=== PATIENT | female | born 1955 | race Caucasian/White ===

== ENCOUNTER 2016-11-23 11:24 | Outpatient (CLI) | payer BC ==
[~2016-11-23] VITALS: Ht 160 cm; Wt 75.9 kg
--- NOTE | ~2016-11-23 | HEMODYNAMI ---
PATIENT:JANIYA BERMAN MEDICAL RECORD: [id number] : 51 LOCATION:[facility] ADMISSION DATE: 11/23/16 Generatedon:11/23/201614:17 Patient name: JANIYA BERMAN Patient #: [id number] SSN: : 1955 Date of study: 11/23/2016 Page: Of Hemodynamic Procedure Report Patient Data Patient Demographics Procedure consent was obtained First Name: JANIYA Gender: Female Last Name: ANTONELLA : 1955 [facility] Initial: DONATO Age: 61 year(s) Patient #: [id number] Race: Additional ID: [id number] Contact details Address: [address] [place] [address] [address]ET State: [place] City: [facility] Zip code: [address] Past Medical History History of disease Date Diagnosis Comments CAD Allergies: No known allergies Admission Admission Data Admission Date: 11/23/2016 Admission Time: 11:24 Lab Results Lab Result Date: 11/23/2016 Lab Result Time: 0:00 Biochemistry Name Units Result Min Max BUN mg/dl 17 --(---*)-- 7 18 Creatinine mg/dl 1.1 --(--*-)-- 0.6 1.3 CBC Name Units Result Min Max Hemoglobin g/dl 13.5 --(*---)-- 13.5 17.5 Procedure Procedure Types Cath Procedure Diagnostic Procedure LHC LHC w/Coronaries w/Grafts Miscellaneous Procedures Moderate Sedation up to 30 minutes Procedure Description Procedure Date Procedure Date: 11/23/2016 Procedure Start Time: 13:59 Procedure End Time: 14:12 Procedure Staff Name Function Mateo Solomon MD Performing Physician Umu Alva RN Nurse Theo Camarena RT Monitor Hussein Soria RT Scrub Procedure Data Cath Procedure Fluoroscopy Diagnostic fluoroscopy Total fluoroscopy Time: 3.5 time: 3.5 min min Diagnostic fluoroscopy Total fluoroscopy dose: dose: 117.28 mGy 117.28 mGy Contrast Material Contrast Material Type Amount (ml) Isovue 300 72 Entry Location Entry Primary Successful Side Size Upsize Upsize Entry Closure Succes sful Closure Location (Fr) 1 (Fr) 2 (Fr) Remarks Device Remarks Femoral Right 5 Fr Exoseal artery Diagnostic catheters Device Type Used For End Catheter Placement Cordis 5Fr JL 4.0 Left Coronary Catheter (MP) Angiography Diagnostic Infinity 5Fr Left Coronary JL 3.5 catheter Angiography Cordis 5Fr 3DRC Catheter Right Coronary (MP) Angiography Diagnostic Infinity 5Fr SVG Angiography IM catheter Cordis 5Fr Pigtail LV Angiography Catheter (MP) Procedure Complications No complications Procedure Medications Medication Administration Route Dosage Oxygen NC 2 l/min Heparin Flush Bag added to field 2 bags (1000units/500ml NS) Lidocaine 2% added to field 20 Versed I.V. 1 mg Fentanyl I.V. 50 mcg Versed I.V. 1 mg Fentanyl I.V. 50 mcg Fentanyl I.V. 50 mcg Fentanyl I.V. 50 mcg Hemodynamics Rest HGB: 13.5 (g/dl) Heart Rate: 52 (bpm) Pressure Samples Time Site Value (mmHg) Purpose Heart Use Rate(bpm) 14:09 LV 106/1,13 EDP 58 14:10 AO 103/47(69) Pullback 59 14:10 LV 106/5,21 Pullback 59 Gradients Valve Time Site 1 Site 2 Mean SEP/DFP Peak To Heart Use (mmHg) (sec/min) Peak Rate (mmHg) (bpm) Aortic 14:10 LV AO 18 6 3 59 106/5,21 103/47(69) Calculations Valve P-P Mean Valve Index Valve Source Name Gradient Area Flow (cm2) Aortic 3 18 3 18 Snapshots Pre Cath Intra NCS Post Cath Vital Signs Time Heart Resp SPO2 NIBP (mmHg) Rhythm Pain Sedation Rate (ipm) (%) Status Level (bpm) 13:19:07 59 19 96 165/73(130) SB 0 (11) 10(A) , No pain 13:23:36 54 18 99 156/70(107) SB 0 (11) 10(A) , No pain 13:28:12 51 12 99 119/55(104) SB 0 (11) 10(A) , No pain 13:32:34 52 12 99 121/60(106) SB 0 (11) 10(A) , No pain 13:36:52 57 14 99 123/70(103) SB 0 (11) 10(A) , No pain 13:41:14 51 15 99 126/56(95) SB 0 (11) 10(A) , No pain 13:45:40 53 14 99 115/52(85) SB 0 (11) 10(A) , No pain 13:50:03 52 15 99 99/46(83) SB 0 (11) 9(A) , No pain 13:54:19 52 15 98 97/49(82) SB 0 (11) 9(A) , No pain 13:59:18 56 15 99 Measuring SB 0 (11) 9(A) , No pain 13:59:28 54 15 99 127/61(104) SB 0 (11) 9(A) , No pain 14:03:42 58 16 98 108/52(75) SB 0 (11) 9(A) , No pain 14:08:00 57 16 97 101/54(82) SB 0 (11) 9(A) , No pain 14:12:14 56 16 97 98/52(68) SB 0 (11) 9(A) , No pain Medications Time Medication Route Dose Verified Delivered Reason Notes Effec tiveness by by 13:18:43 Oxygen NC 2 Mateo Umu Per l/min Juanito Alva RN physician 13:18:51 Heparin Flush added 2 Mateo Mateo used for Bag to bags Juanito Solomon MD procedure (1000units/500ml field NS) 13:19:03 Lidocaine 2% added 20ml Mateo Mateo used for to vial Juanito Solomon MD procedure field 13:43:30 Versed I.V. 1 mg Mateo Umu for Juanito Alva RN sedation 13:43:45 Fentanyl I.V. 50 Mateo Umu for tierra Alva RN sedation 13:45:37 Versed I.V. 1 mg Mateo Umu for Juanito Alva RN sedation 13:45:49 Fentanyl I.V. 50 Mateo Umu for mcg Juanito Alva RN sedation 13:48:38 Fentanyl I.V. 50 Mateo Umu for mcg Juanito Alva RN sedation 13:58:26 Fentanyl I.V. 50 Mateo Umu for mcg Juanito Alva RN sedation Procedure Log Time Note 13:02:57 Hussein Soria RT(R) sent for patient. Start room use. 13:02:58 Time tracking: Regular hours 13:03:04 Plan of Care:Hemodynamics will remain stable., Cardiac rhythm will remain stable., Comfort level will be maintained., Respiratory function will remain adequate., Patient/ family verbilizes understanding of procedure., Procedure tolerated without complication., Recovers from procedure without complications.. 13:09:33 Patient received from Pre/Post Procedure Room to CCL 3 Alert and oriented. Tansferred to table in Supine position. 13:09:34 Warm blankets applied, and leandro hugger turned on for patient comfort. 13:09:34 Correct patient and procedure confirmed by team. 13:09:36 Signed procedure consent form obtained from patient. 13:09:36 ECG and BP/O2 sat monitors applied to patient. 13:17:37 Vital chart was started 13:17:38 Full Disclosure recording started 13:18:43 Oxygen 2 l/min NC was administered by Umu Alva RN; Per physician; 13:18:51 Heparin Flush Bag (1000units/500ml NS) 2 bags added to field was administered by Mateo Solomon MD; used for procedure; 13:19:03 Lidocaine 2% 20ml vial added to field was administered by Mateo Solomon MD; used for procedure; 13:30:56 Baseline sample Acquired. 13:30:59 Rhythm: sinus rhythm 13:31:06 H&P Date Dictated: 11/10/2016 Within 30 days and on chart., H&P Addendum completed by physician on day of procedure. (MUST COMPLETE FOR ALL OUTPATIENTS). 13:31:11 Pre-procedure instructions explained to patient. 13:31:11 Pre-op teaching completed and patient verbalized understanding. 13:31:14 Family in patients room. 13:31:15 Patient NPO since Midnight. 13:31:34 Patient allergic to No known allergies 13:31:37 Is the patient allergic to Iodine/contrast media? No. 13:32:28 Is patient on blood thinner?No 13:32:29 Patient diabetic? No. 13:32:30 ----Pre-sedation anethsthesia assessment.---- 13:32:33 Previous problem with sedation/anesthesia? No ? 13:32:34 Snore? Yes 13:32:36 Sleep apnea? Yes 13:32:37 Deviated septum? No 13:32:39 Opens mouth fully? Yes 13:32:40 Sticks out tongue? Yes 13:32:42 Airway obstruction? No ? 13:32:44 Dentures? No ? 13:32:47 Pre procedure: right dorsailis pedis pulse 1+ Palpable, but thready & weak; easily obliterated 13:32:50 Modified Catarino's test Ulnar > 7 seconds. 13:32:53 Patient pain scale 0/10 ?. 13:33:22 IV patent on arrival in right forearm with 0.9% NaCl at 10ml/hr. 13:34:05 Lab Result : BUN 17 mg/dl 13:34:05 Lab Result : Hemoglobin 13.5 g/dl 13:34:05 Lab Result : Creatinine 1.1 mg/dl 13:34:09 Lab results completed and on chart. 13:34:12 Right groin area was prepped with chlora-prep and draped in sterile fashion 13:34:18 Alarms reviewed by R. N. 13:34:18 Sharps counted by scrub and verified by R.N. 13:43:12 --------ALL STOP TIME OUT------ 13:43:13 Final Timeout: patient, procedure, and site verified with staff and physician. All members of the team are in agreement. 13:43:14 Right groin site verified by team. 13:43:22 Sedation plan: IV Moderate Sedation Versed, Fentanyl 13:43:26 Physical assessment completed. ASA score P 2 - A patient with mild systemic disease as per Mateo Solomon MD. 13:43:30 Versed 1 mg I.V. was administered by Umu Alva RN; for sedation; 13:43:45 Fentanyl 50 mcg I.V. was administered by Umu Alva RN; for sedation; 13:45:37 Versed 1 mg I.V. was administered by Umu Alva RN; for sedation; 13:45:49 Fentanyl 50 mcg I.V. was administered by Umu Alva RN; for sedation; 13:46:51 Use device set Femoral Dx 13:46:53 Acist Syringe opened to sterile field. 13:46:53 Bag Decanter opened to sterile field. 13:46:54 Medline Cath Pack opened to sterile field. 13:46:55 Terumo 5Fr Watkins Sheath opened to sterile field. 13:46:55 [place] 260cm J .035 wire opened to sterile field. 13:46:56 Acist Hand Control opened to sterile field. 13:46:57 Acist Manifold opened to sterile field. 13:46:57 Diagnostic Infinity 5Fr Multipack catheter opened to sterile field. 13:46:58 Tegaderm 4 x 4 opened to sterile field. 13:48:38 Fentanyl 50 mcg I.V. was administered by Umu Alva RN; for sedation; 13:58:26 Fentanyl 50 mcg I.V. was administered by Umu Alva RN; for sedation; 13:58:39 Procedure started. 13:59:15 Local anesthetic to right femoral artery with Lidocaine 2% by Mateo Solomon MD.INITIAL ACCESS ONLY 13:59:16 Zero performed for pressure channel P1 13:59:32 A 5 Fr sheath was inserted into the Right Femoral artery 13:59:40 A Cordis 5Fr JL 4.0 Catheter (MP) was advanced over the wire and used for Left Coronary Angiography. 14:00:52 Catheter removed. unable to cannulate vessel. 14:01:19 A Diagnostic Infinity 5Fr JL 3.5 catheter was advanced over the wire and used for Left Coronary Angiography. 14:01:30 LCA angiography performed. 14:03:32 Catheter removed. 14:04:00 A Cordis 5Fr 3DRC Catheter (MP) was advanced over the wire and used for Right Coronary Angiography. 14:04:31 RCA angiography performed. 14:04:33 Catheter removed. 14:04:47 A Diagnostic Infinity 5Fr IM catheter was advanced over the wire and used for SVG Angiography. 14:06:20 SVG to LAD angiography performed. 14:07:12 Catheter removed. 14:07:20 A Cordis 5Fr Pigtail Catheter (MP) was advanced over the wire and used for LV Angiography. 14:07:27 LV gram done using JOSE 14:07:28 LV hemodynamics recorded. 14:07:31 Injector settings: Ml/sec: 10, Volume: 20, 14:09:17 Zero performed for pressure channel P1 14:09:55 EF : 60 % 14:10:05 Catheter removed. 14:10:14 Contrast amount:Isovue 300 72ml. 14:10:20 Sheath removed intact; hemostasis achieved with Exoseal to the Right Femoral artery. 14:10:21 Procedure ended.(Physican Out) 14:10:32 Fluoroscopy time 03.50 minutes. 14:10:39 Fluoroscopy dose: 117.28 mGy 14:10:39 Flurop Dose total: 117.28 14:10:40 Sharps counted by scrub and verified by R.N. 14:10:41 Insertion/operative site no bleeding no hematoma. 14:10:44 Post-op/insertion site Right Femoral artery dressed using a 4 x 4 and Tegaderm. 14:10:47 Post right femoral artery:stable 14:10:48 Post Procedure Pulses reassessed and unchanged 14:10:50 Post procedure: right dorsailis pedis pulse 1+ Palpable, but thready & weak; easily obliterated. 14:11:23 Post procedure rhythm: sinus rhythm 14:11:24 Post procedure instruction explained to patient.Patient verbalizes understanding. 14:11:39 Cordis 5Fr Exoseal opened to sterile field. 14:11:59 Procedure type changed to Cath procedure, Diagnostic procedure, LHC, LHC w/Coronaries w/Grafts, Miscellaneous Procedures, Moderate Sedation up to 30 minutes 14:12:13 Procedure and supply charges have been captured, reviewed, submitted and are correct. 14:12:18 Procedure Complication : No complications 14:12:19 Vital chart was stopped 14:12:20 See physician's report for complete and final results. 14:12:22 Report given to Pre/Post Procedure Room. 14:12:25 Patient transfered to Pre/Post Procedure Room with Stretcher. 14:12:27 Procedure ended. 14:12:27 Full Disclosure recording stopped 14:12:30 End room use (Document Last) Device Usage Item Name Manufacture Quantity Catalog Hospital Part Current Minimal Lo t# / Number Charge Number Stock Stock Serial# Code [facility] 1 28856 [id number] 515888 [id number] 20 Syringe [employer] Inc Bag Microtek 1 2002S 447270 36018 576637 5 Decanter [employer]. Medline Cardinal 1 [id number] 040437 80455 462430 5 Cath Pack Health Terumo 5Fr Terumo 1 [id number] 727971 884335 335523 [address] [facility] 1 840334 370249 194230 624088 30 260cm J .035 wire Acist Hand Acist 1 68214 778333 819551 159767 5 Control Medical Systems Inc Acist Acist 1 96587 321527 799566 353087 5 Manifold Medical Systems Inc Diagnostic Cardinal 1 [id number] 094872 91753 748553 30 Infinity Health 5Fr Multipack catheter Tegaderm 4 3M 1 1626W 461796 797316 040342 5 x 4 Cordis 5Fr Cardinal 1 957157 5 JL 4.0 Health Catheter (MP) Diagnostic Cardinal 1 [id number] 480239 463229 242818 5 Infinity Health 5Fr JL 3.5 catheter Cordis 5Fr Cardinal 1 522453 5 3DRC Health Catheter (MP) Diagnostic Cardinal 1 [id number] 534580 461151 882496 5 Infinity Health 5Fr IM catheter Cordis 5Fr Cardinal 1 887250 5 Pigtail Health Catheter (MP) Cordis 5Fr Cardinal 1 EX500 550006 914821 422965 10 VitalTrax Signature Audit Llewellyn Stage Time Signature Unsigned Intra-Procedure 11/23/2016 Theo Camarena 2:16:47 PM RT(R) Signatures Monitor : Theo Camarena RT Signature : Date : Time : [id number] [place] [address]
[~2016-11-23 11:24] MED LIST: ASPIRIN325 MG PO; CHLORTHALIDONE25 MG PO; COZAAR100 MG PO; ESTRACE 0.5 MG0.5 MG PO; FLAGYL500 MG PO; FOLIC ACID1 MG PO; IMODIUM; KLOR-CON M2020 MEQ PO; LEVAQUIN500 MG PO; PLAVIX75 MG PO; PREVACID15 MG PO; SYNTHROID25 MCG PO; TOPROL XL50 MG PO
[2016-11-23] MEDS ORDERED: PEPCID40 MG PO (11:54)
[2016-11-23] MEDS ORDERED: GABAPENTIN100 MG PO (11:55)
[2016-11-23] MEDS ORDERED: PROZAC10 MG PO (11:55)
[2016-11-23] MEDS ORDERED: LIPITOR20 MG PO (11:55)
[2016-11-23] MEDS ORDERED: NITROQUICK0.4 MG SL (11:56)
[2016-11-23] MEDS ORDERED: ATIVAN0.5 MG PO (11:57)
[2016-11-23 12:03] VITALS: BP 160/70; Ht 160 cm; Wt 75.9 kg
[2016-11-23 12:13] LABS: BASOPHILS 0.3 % (0.0-2.0); EOSINOPHILS 1.5 % (0-7); HEMATOCRIT 40.3 % (36.0-48.0); HEMOGLOBIN 13.5 g/dL (12-16); LYMPHOCYTES 26.3 % (15-50); MCH 32.8 pg (26.0-34.0); MCHC 33.5 g/dL (31.0-37.0); MCV 98.1 fL (80.0-100.0); MEAN PLATELET VOLUME 11.6 fL (7.4-10.4); MONOCYTES 10.1 % (2-11); NEUTROPHILS 61.8 % (40-80); PLATELET COUNT 190 10x3/uL (130-400); RBC 4.11 10x6/uL (4.00-5.40); RDW 12.5 % (11.5-14.5); WBC 3.9 10x3/uL (4.8-10.8)
[2016-11-23 12:23] LABS: ANION GAP 14.2 mmol/L (8-16); CALCIUM 9.2 mg/dL (8.5-10.1); CREATININE - SERUM 1.1 mg/dL (0.6-1.3); POTASSIUM - SERUM 4.2 mmol/L (3.5-5.1)
--- NOTE | 2016-11-23 17:51 | NUR ---
1445-RIGHT GROIN CDI, NO HEMATOMA OR BLEEDING NOTED, SOFT TO TOUCH 1515-NO CHANGES IN RIGHT GROIN
--- NOTE | 2016-12-04 12:24 | OP ---
PATIENT NAME: JANIYA BERMAN MEDICAL RECORD: [id number] :51 LOCATION:[facility] ADMISSION DATE: SURGEON: AMINATA SCOTT M.D. DATE OF OPERATION: 11/23/2016 REFERRING PHYSICIAN: Nabil Arshad MD PROCEDURES PERFORMED: 1. Selective coronary angiography. 2. Left heart catheterization with ventriculogram. 3. Left internal mammary injection INDICATION: A 61-year-old woman, who presents with symptoms of worsening angina. Recent Cardiolite stress test revealed anterior wall ischemia. EQUIPMENT USED: A 5-German JL4, Abhinav right, pigtail catheter, mammary catheter. TECHNIQUE: A 5-German sheath was inserted in retrograde fashion in the right common femoral artery. Next, selective coronary angiography was performed in standard 5-German JL4 and Abhinav right. Left heart catheterization was performed using pigtail catheter. The mammary catheter was used to engage the left internal mammary artery. CORONARY ANATOMY: 1. Left main: Left main trunk is moderate in caliber. It gives rise to the LAD and circumflex. It has no obstruction. 2. LAD: This is moderate caliber vessel extending to the apex. The proximal vessel has been stented. The stent is widely patent. There is no evidence of restenosis. There is competitive flow seen in the first diagonal branch. 3. Circumflex: This vessel is moderate in caliber. The mid vessel has been stented. The stent is widely patent without evidence of restenosis. 4. Right coronary artery: This vessel is moderate in caliber and dominant. The mid vessel has been stented. The stents were widely patent. There is no evidence of restenosis 5. Left ventricle: Left ventricle is normal in size and function. No wall motion abnormalities are seen. Estimated ejection fraction is 60%. 6. Left internal mammary artery to left anterior descending: This graft actually attaches down the first diagonal branch. The graft is quite small, but is patent throughout its course. IMPRESSION: 1. Widely patent stents in the left anterior descending, circumflex, right coronary artery without evidence of restenosis. 2. Normal left ventricular function. RECOMMENDATIONS: We will continue medical management at this point. TRANSINT:[id number] Voice Confirmation ID: [id number] DOCUMENT ID: [id number] OPERATIVE REPORT [id number] JANIYA BERMAN AMINATA SCOTT M.D. at 1224 CC: [id number] DICTATION DATE: 11/23/16 1418 CIRCULATION MAN: 11/23/16 1949 DEP CLI 11/23/16 [address] [place] [address]
== END 2016-11-23 17:30 | disposition home or self-care (01) ==
LOC: D.CATH 11:24
PROVIDERS: Internal Medicine Cardiovascular Disease
DX: I25.119 Atherosclerotic heart disease of native coronary artery with unspecified angina pectoris (principal); Z95.5 Presence of coronary angioplasty implant and graft; Z95.1 Presence of aortocoronary bypass graft

== ENCOUNTER → 2017-04-23 08:52 | Outpatient (CLI) | payer BC ==
[2016-11-23 12:03] VITALS: BMI 29.6
--- NOTE | ~2017-04-23 | EC ---
PATIENT:JANIYA BERMAN DATE OF SERVICE: 04/23/17 SEX: F MEDICAL RECORD: [id number] DATE OF : [birth year] [facility] AGE OF PATIENT: 62 ADMISSION DATE: 04/23/17 REFERRING PHYSICIAN: INTERPRETING PHYSICIAN: AL ROME MD ECHOCARDIOGRAM REPORT ECHO CHARGES 4 ECHO COMPLETE CLINICAL DIAGNOSIS: ASSESS MITRAL/TRICUSPID REGURGE ASSESS MITRAL//TRICUSPID REGURG. HX OF CAD/STENT/HTN ECHOCARDIOGRAPHIC MEASUREMENTS (adult normal given) AC root (d.<3.7cm) 3.3 cm LV Septum d (<1.2 cm> 1.4 cm Valve Excursion 1.6 cm LV Septum (systole) 1.5 cm Left Atria (s.<4.0cm> 4.5 cm LVPW d(<1.2cm) 1.4 cm RV (d.<2.3cm) 3.5 cm LVPW (sytole) 1.3 cm LV diastole(<5.6CM) 5.0 cm MV E-F(>70mm/sec) cm LV systole 3.6 cm LVOT Diameter 1.8 cm MV exc.(>10mm) 1.6 cm Est.ejection fraction (50-75%) % Pericardial Effusion N DOPPLER: LVIT cm/sec A 67.0 cm/sec E 104 cm/sec LA cm/sec RVSP 51 mmHg LVOT 88 cm/sec AOP1/2T m/s Asc. Ao 149 cm/sec RVOT 67 cm/sec RA cm/sec PA 90 cm/sec AV Gradient Peak 8.89 mmHg AV Mean 4.45 mmHg AV Area 1.5 cm MV Gradient Peak 5.18 mmHg MV Mean 1.31 mmHg MV Area cm COMMENTS: Project Management Specialist: 2 YAQUELIN RAPHAEL Licensed Mortgage Loan Officer: 1 Dr. Rome TAPE# PACS DATE OF SERVICE: 04/23/2017 Echocardiogram Report FINDINGS: 1. Left ventricular chamber size is within normal limits. Left ventricular systolic function is normal. Overall ejection fraction estimated at 55%. ECHOCARDIOGRAM REPORT [id number] JANIYA BERMAN 2. Left atrium is enlarged at 4.5 cm. Right atrium and right ventricle chamber sizes are as well mildly dilated. 3. Valvular structures have normal structure and motion. 4. Doppler interrogation reveals mild mitral regurgitation, moderate tricuspid regurgitation, no other valvular insufficiency or stenosis. Pulmonary systolic pressure is elevated estimated at 51 mmHg. 5. No evidence of pericardial effusion or left ventricular thrombus. TRANSINT:[id number] Voice Confirmation ID: [id number] DOCUMENT ID: [id number] AL ROME MD CC: [id number] DICTATION DATE: 04/23/17 1516 DITTO MACHINE OPERATOR: 04/23/172015 [facility] [address] [id number]
[~2017-04-23 08:52] MED LIST changes: +ATIVAN0.5 MG PO; +GABAPENTIN100 MG PO; +LIPITOR20 MG PO; +NITROQUICK0.4 MG SL; +PEPCID40 MG PO; +PROZAC10 MG PO
== END | disposition home or self-care (01) ==
LOC: D.ECHO 08:52
DX: I34.0 Nonrheumatic mitral (valve) insufficiency (principal)

== ENCOUNTER 2017-06-01 11:09 | Outpatient (CLI) | payer BC ==
--- NOTE | ~2017-06-01 | HEMODYNAMI ---
PATIENT:JANIYA BERMAN MEDICAL RECORD: [id number] : 51 LOCATION:[facility] ADMISSION DATE: 06/01/17 Generatedon:06/01/201713:34 Patient name: JANIYA BERMAN Patient #: [id number] SSN: : 1955 Date of study: 06/01/2017 Page: Of Hemodynamic Procedure Report Patient Data Patient Demographics Procedure consent was obtained First Name: JANIYA Gender: Female Last Name: ANTONELLA : 1955 [facility] Initial: DONATO Age: 62 year(s) Patient #: [id number] Race: Additional ID: [id number] Contact details Address: [address] [place] [address] [address] State: [place] City: [facility] Zip code: [address] Past Medical History History of disease Date Diagnosis Comments CAD Allergies: No known allergies Admission Admission Data Admission Date: 06/01/2017 Admission Time: 11:09 Procedure Procedure Types Cath Procedure Diagnostic Procedure Right Heart Right Heart Cath Miscellaneous Procedures Moderate Sedation up to 30 minutes Procedure Description Procedure Date Procedure Date: 06/01/2017 Procedure Start Time: 13:15 Procedure End Time: 13:31 Procedure Staff Name Function Mateo Solomon MD Performing Physician Ana Joyner RT Scrub Eleuterio Higuera RN Nurse Yoli Leiva RT Monitor Procedure Data Cath Procedure Fluoroscopy Diagnostic fluoroscopy Total fluoroscopy Time: 1 time: 1 min min Diagnostic fluoroscopy Total fluoroscopy dose: 50 dose: 50 mGy mGy Contrast Material Contrast Material Type Amount (ml) Isovue 300 0 Entry Location Entry Primary Successful Side Size Upsize Upsize Entry Closure Sanz ccessful Closure Location (Fr) 1 (Fr) 2 (Fr) Remarks Device Remarks Femoral Right 7 Fr Manual vein Short Compression Estimated blood loss: 5 ml Diagnostic catheters Device Type Used For End Catheter Placement [email or web address] 7Fr Procedure Yoder Thermodilution franck Procedure Complications No complications Procedure Medications Medication Administration Route Dosage Oxygen NC 2 l/min Lidocaine 2% added to field 20 Heparin Flush Bag added to field 2 bags (1000units/500ml NS) 0.9% NaCl I.V. Versed I.V. 1 mg Fentanyl I.V. 50 mcg Versed I.V. 1 mg Fentanyl I.V. 50 mcg Hemodynamics Rest Heart Rate: 60 (bpm) Pressure Samples Time Site Value (mmHg) Purpose Heart Use Rate(bpm) 13:19 PA 37/7(19) Snapshot 53 13:19 PCW 11/13(9) Snapshot 52 13:25 RV 45/2,5 Snapshot 69 13:27 RA 5/6(4) Snapshot 55 Snapshots Pre Cath Intra NCS Post Cath Vital Signs Time Heart Resp SPO2 NIBP (mmHg) Rhythm Pain Sedation Rate (ipm) (%) Status Level (bpm) 12:46:50 55 17 100 167/75(134) NSR 0 (11) 10(A) , No pain 12:51:08 53 18 100 143/73(131) NSR 0 (11) 10(A) , No pain 12:55:32 54 18 99 154/68(117) NSR 0 (11) 10(A) , No pain 12:59:59 57 18 97 154/71(135) NSR 0 (11) 10(A) , No pain 13:04:19 53 14 98 128/63(118) NSR 0 (11) 10(A) , No pain 13:08:39 52 16 100 130/60(98) NSR 0 (11) 10(A) , No pain 13:12:59 50 14 99 128/64(111) NSR 0 (11) 10(A) , No pain 13:17:17 51 17 99 136/70(112) NSR 0 (11) 10(A) , No pain 13:21:33 54 21 99 107/57(88) NSR 0 (11) 9(A) , No pain 13:25:45 32 17 99 101/61(86) NSR 0 (11) 10(A) , No pain 13:30:50 50 30 99 133/67(99) NSR 0 (11) 10(A) , No pain Medications Time Medication Route Dose Verified Delivered Reason Notes Effe ctiveness by by 12:52:01 Oxygen NC 2 Mateo Buffie used for l/min Juanito Higuera aeronautical engineering officer 12:52:08 Lidocaine 2% added 20ml Mateo Mateo for local to vial Juanito Solomon MD anesthetic field 12:52:14 Heparin Flush added 2 Mateo Mateo used for Bag to bags Juanito Solomon MD procedure (1000units/500ml field NS) 12:52:30 0.9% NaCl I.V. kvo Mateo Buffie Per ml/hr Juanito Higuera RN physician 13:10:33 Versed I.V. 1 mg Mateo Buffie for Juanito Higuera RN sedation 13:10:40 Fentanyl I.V. 50 Mateo Buffie for mcg Juanito Higuera RN sedation 13:18:36 Versed I.V. 1 mg Mateo Buffie for Juanito Higuera RN sedation 13:18:39 Fentanyl I.V. 50 Mateo Buffie for mcg Juanito Higuera RN sedation Procedure Log Time Note 12:19:54 Informed consent obtained and on chart 12:20:03 Diagnostic Cath Status : Elective 12:20:26 Eleuterio Higuera RN sent for patient. Start room use. 12:20:27 Time tracking: Regular hours 12:20:32 Plan of Care:Hemodynamics will remain stable., Cardiac rhythm will remain stable., Comfort level will be maintained., Respiratory function will remain adequate., Patient/ family verbilizes understanding of procedure., Procedure tolerated without complication., Recovers from procedure without complications.. 12:36:32 Patient received from Pre/Post Procedure Room to [facility] 2 Alert and oriented. Tansferred to table in Supine position. 12:36:44 Warm blankets applied, and leandro hugger turned on for patient comfort. 12:36:44 Correct patient and procedure confirmed by team. 12:36:45 ECG and BP/O2 sat monitors applied to patient. 12:40:48 H&P Date Dictated: 05/26/2017 Within 30 days and on chart., H&P Addendum completed by physician on day of procedure. (MUST COMPLETE FOR ALL OUTPATIENTS). 12:40:51 Pre-procedure instructions explained to patient. 12:40:53 Family in waiting room. 12:40:55 Patient NPO since Midnight. 12:41:00 Patient allergic to No known allergies 12:41:03 Is the patient allergic to Iodine/contrast media? No. 12:41:05 Was the patient premedicated? Yes 12:41:06 Is patient on blood thinner?Yes 12:41:09 ACC The patient was administered the following blood thiners within the last 24 hours: ACCAspirin 12:41:12 Patient diabetic? No. 12:41:15 Snore? Yes 12:41:17 Sleep apnea? Yes 12:41:18 Deviated septum? No 12:41:26 Dentures? No ? 12:41:31 Patient pain scale 0/10 ?. 12:41:37 IV patent on arrival in left forearm with 0.9% NaCl at KVO. 12:41:45 Lab results completed and on chart. 12:41:48 Right groin area was prepped with chlora-prep and draped in sterile fashion 12:41:50 Alarms reviewed by R. N. 12:41:50 Sharps counted by scrub and verified by R.N. 12:42:14 Rhythm: sinus rhythm 12:42:18 Baseline sample Acquired. 12:42:20 Baseline sample Acquired. 12:42:24 Baseline sample Acquired. 12:42:27 Full Disclosure recording started 12:46:33 Baseline sample Acquired. 12:46:53 A Rollerscoot 7Fr Yoder Thermodilution franck was advanced over the wire and used for Procedure. 12:47:27 Use device set Femoral Dx 12:47:29 Acist Syringe opened to sterile field. 12:47:30 Bag Decanter opened to sterile field. 12:47:33 Medline Cath Pack opened to sterile field. 12:47:38 [place] 260cm J .035 wire opened to sterile field. 12:47:41 Acist Hand Control opened to sterile field. 12:47:41 Acist Manifold opened to sterile field. 12:47:42 Tegaderm 4 x 4 opened to sterile field. 12:52:01 Oxygen 2 l/min NC was administered by Eleuterio Higuera RN; used for procedure; 12:52:08 Lidocaine 2% 20ml vial added to field was administered by Mateo Solomon MD; for local anesthetic; 12:52:14 Heparin Flush Bag (1000units/500ml NS) 2 bags added to field was administered by Mateo Solomon MD; used for procedure; 12:52:30 0.9% NaCl kvo ml/hr I.V. was administered by Eleuterio Higuera RN; Per physician; 12:59:10 Zero performed for pressure channel P1 13:05:56 Physician arrived 13:05:56 --------ALL STOP TIME OUT------ 13:05:57 Final Timeout: patient, procedure, and site verified with staff and physician. All members of the team are in agreement. 13:05:58 Right groin site verified by team. 13:06:01 Physical assessment completed. ASA score P 2 - A patient with mild systemic disease as per Mateo Solomon MD. 13:06:04 Sedation plan: IV Moderate Sedation Versed, Fentanyl 13:10:33 Versed 1 mg I.V. was administered by Eleuterio Higuera RN; for sedation; 13:10:40 Fentanyl 50 mcg I.V. was administered by Eleuterio Higuera RN; for sedation; 13:14:55 Procedure started. 13:15:11 Local anesthetic to right femoral vein with Lidocaine 2% by Mateo Solomon MD.INITIAL ACCESS ONLY 13:16:15 Terumo 7Fr [place] Sheath opened to sterile field. 13:16:39 A 7 Fr Short sheath was inserted into the Right Femoral vein 13:18:36 Versed 1 mg I.V. was administered by Eleuterio Higuera RN; for sedation; 13:18:39 Fentanyl 50 mcg I.V. was administered by Eleuterio Higuera RN; for sedation; 13:25:43 Yoder-Viraj "C" tip catheter inserted 13:25:45 Right heart pressures and cardiac output were obtained. 13:25:58 RV sats 73.6, RA 73.6 13:28:05 Yoder-Viraj removed. 13:28:20 Sheath removed intact; hemostasis achieved with Manual Compression to the Right Femoral vein. 13:28:26 Procedure ended.(Physican Out) 13:29:07 Fluoroscopy time 01.00 minutes. 13:29:12 Fluoroscopy dose: 50 mGy 13:29:12 Flurop Dose total: 50 13:29:26 Contrast amount:Isovue 300 0ml. 13:30:03 Sharps counted by scrub and verified by R.N. 13:30:07 Insertion/operative site no bleeding no hematoma. 13:30:10 Post-op/insertion site Right Femoral vein dressed using a 4 x 4 and Tegaderm. 13:30:16 Post procedure rhythm: unchanged. 13:30:18 Estimated blood loss: 5 ml 13:30:20 Post procedure instruction explained to patient.Patient verbalizes understanding. 13:30:20 Patient needs reinforcement of post procedure teaching. 13:30:33 Procedure type changed to Cath procedure, Diagnostic procedure, Right Heart, Right Heart Cath, Miscellaneous Procedures, Moderate Sedation up to 30 minutes 13:30:35 Procedure and supply charges have been captured, reviewed, submitted and are correct. 13:30:40 Procedure Complication : No complications 13:30:43 Vital chart was stopped 13:30:44 See physician's report for complete and final results. 13:30:50 Report given to Pre/Post Procedure Room. 13:31:08 Patient transfered to Pre/Post Procedure Room with Stretcher. 13:31:39 Procedure ended. 13:31:39 Full Disclosure recording stopped 13:31:47 End room use (Document Last) Device Usage Item Name Manufacture Quantity Catalog Hospital Part Current Minima l Lot# / Number Charge Number Stock Stock Serial# Code Cheko Still 1 [id number] 01462 [id number] 3 [email or web address] Lifesciences 7Fr Yoder Thermodilution franck Acist Syringe Acist 1 95027 [id number] [id number] [id number] 20 [employer] Bag Decanter Microtek 1 2002S 148454 58540 259744 5 [employer] Medline Cath Cardinal 1 [id number] 666670 17090 992968 5 [facility] [place] [address] [facility] [place] 1 [id number] 299376 333526 996813 30 J .035 wire Acist Hand Acist 1 62203 898994 746995 471226 5 Control [employer] Acist Manifold Acist 1 95325 017938 290731 805921 5 [employer] Tegaderm 4 x 4 3M 1 [id number] 614584 480243 098555 5 Terumo 7Fr Terumo 1 [id number] 002179 804288 910189 5 [place] Sheath Signature Audit [place] Stage Time Signature Unsigned Intra-Procedure 06/01/2017 Yoli Leiva 1:34:20 PM RT(R) Signatures Monitor : Yoli Leiva RT Signature : Date : Time : [facility] [address] [place] [address]
[2017-06-01 11:46] VITALS: BP 163/68; BMI 30.1
[2017-06-01 11:57] LABS: BASOPHILS 0.5 % (0-2); EOSINOPHILS 1.5 % (0-7); HEMATOCRIT 40.4 % (36.0-48.0); HEMOGLOBIN 13.9 g/dL (12-16); MCH 33.7 pg (26.0-34.0); MCHC 34.4 g/dL (31.0-37.0); MCV 98.1 fL (80.0-100.0); MEAN PLATELET VOLUME 11.2 fL (7.4-10.4); MONOCYTES 9.8 % (2-11); NEUTROPHILS 62.2 % (40-80); PLATELET COUNT 186 10x3/uL (130-400); RBC 4.12 10x6/uL (4.00-5.40); RDW 12.6 % (11.5-14.5); WBC 4.1 10x3/uL (4.8-10.8)
[2017-06-01 12:17] LABS: ANION GAP 13.6 mmol/L (8-16); CALCIUM 9.3 mg/dL (8.5-10.1); CREATININE - SERUM 1.1 mg/dL (0.6-1.3); POTASSIUM - SERUM 3.6 mmol/L (3.5-5.1)
--- NOTE | 2017-06-01 13:45 | NUR ---
1345 RECIEVED TO ROOM VIA STRETCHER FROM MANAGER COMMUNITY DEVELOPMENT WITH DRESSING TO R/GROIN CDI. C COMLETE WITH DR SCOTT AT BEDSIDE TALKING TO FAMILY. VSS WITH PAIN DENIED. 1400 R/GROIN REMAINS CDI NO BLEEDING NO HEMATOMA NOTED. VSS WILL MONITOR
--- NOTE | 2017-06-01 14:00 | NUR ---
1400 RESTING QUIETLY WITH EYES CLOSED NO DISTRESS NOTED
--- NOTE | 2017-06-01 14:33 | NUR ---
R/GROIN CDI NO BLEEDING NO HEMATOMA NOTED. CHEST PAIN IS DENIED. VSS WITH NO DISTRESS NOTED.
--- NOTE | 2017-06-01 14:45 | NUR ---
PATIENT SLEEPING QUIETLY NO DISTRESS. VSS
--- NOTE | 2017-06-01 15:14 | NUR ---
PATIENT CONTINUES TO SLEEP WITH NO DISTRESS NOTED VSS R/GROIN CDI
--- NOTE | 2017-06-01 15:21 | NUR ---
REPOSITIONED TO SITTING WITH HOB UP 30 DEGREES CHEST PAIN DENIED. R/GROIN CDI NO BLEEDING NO HEMATOMA NOTED. SANDWICH AND SODA TO BEDSIDE.
--- NOTE | 2017-06-01 15:40 | NUR ---
LEFT FA PIV D/C'D WITH CATHETER INTACT, BAND AID TO SITE. UP TO BEDSIDE TO GET DRESSED.
--- NOTE | 2017-06-01 15:50 | NUR ---
DISCHARGE INSTRUCTIONS GIVEN, VERBALIZED UNDERSTANDING. TO RESTROOM TO VOID.
--- NOTE | 2017-06-01 15:56 | NUR ---
TAKEN OUT VIA WHEELCHAIR BY CATH HIV COUNSELOR. LEFT FACILITY WITH FAMILY MEMBER AND ALL PERSONAL BELONGINGS.
== END 2017-06-01 15:56 | disposition home or self-care (01) ==
LOC: D.CATH 11:09
PROVIDERS: Internal Medicine Cardiovascular Disease
DX: I27.20 Pulmonary hypertension, unspecified (principal); I25.10 Atherosclerotic heart disease of native coronary artery without angina pectoris; Z01.812 Encounter for preprocedural laboratory examination

== ENCOUNTER → 2017-06-15 07:32 | Outpatient (CLI) | payer BC ==
[2017-06-01 11:46] VITALS: BMI 30.1
== END | disposition home or self-care (01) ==
LOC: D.RT 07:32
DX: R06.09 Other forms of dyspnea (principal)

== ENCOUNTER 2018-04-04 19:00 | Outpatient (CLI) | payer MEDICARE | END 2018-04-04 23:59 | disposition home or self-care (01) | LOC: D.MAMMO 19:00 | DX: Z12.31 Encounter for screening mammogram for malignant neoplasm of breast (principal) ==

== ENCOUNTER → 2018-11-04 08:55 | Outpatient (CLI) | payer MEDICARE | END | disposition home or self-care (01) | LOC: D.ECHO 08:55 | PROVIDERS: ATTEND Internal Medicine Cardiovascular Disease | DX: I36.1 Nonrheumatic tricuspid (valve) insufficiency (principal) ==

== ENCOUNTER 2018-12-01 06:31 | Outpatient (CLI) | payer MEDICARE ==
[~2018-12-01] VITALS: Ht 160 cm; Wt 78.2 kg
--- NOTE | ~2018-12-01 | HEMODYNAMI ---
PATIENT:JANIYA BERMAN MEDICAL RECORD: [id number] : 51 LOCATION:[facility] ADMISSION DATE: 12/01/18 Generatedon:12/01/20189:39 Patient name: JANIYA BERMAN Patient #: [id number] SSN: : 1955 Date of study: 12/01/2018 Page: Of Hemodynamic Procedure Report Patient Data Patient Demographics Procedure consent was obtained First Name: JANIYA Gender: Female Last Name: ANTONELLA : 1955 [facility] Initial: DONATO Age: 63 year(s) Patient #: [id number] Race: Additional ID: [id number] Contact details Address: [address] [place] [address] [address] State: [place] City: [facility] Zip code: [address] Past Medical History History of disease Date Diagnosis Comments CAD Allergies: No known allergies Admission Admission Data Admission Date: 12/01/2018 Admission Time: 6:31 Height (in.): 63 BSA: 1.83 (m2) Height (cm.): 160.02 BMI: 31.18 (kg/m2) Weight (lbs.): 176 Weight (kg.): 79.83 Lab Results Lab Result Date: 12/01/2018 Lab Result Time: 0:00 Biochemistry Name Units Result Min Max BUN mg/dl 22 --(----)-* 7 18 Creatinine mg/dl 1.2 --(---*)-- 0.6 1.3 CBC Name Units Result Min Max Hematocrit % 40.8 -*(----)-- 42 54 Hemoglobin g/dl 13.8 --(*---)-- 13.5 17.5 Procedure Procedure Types Cath Procedure Diagnostic Procedure Right Heart RHC and LHC w/Coronaries w/ Grafts Sedation Charges Moderate Sedation up to 30 minutes Procedure Description Procedure Date Procedure Date: 12/01/2018 Procedure Start Time: 9:02 Procedure End Time: 9:36 Procedure Staff Name Function Mateo Solomon MD Performing Physician Antonella Guan RT Monitor Vikram Camarena RT Scrub Kaylen Alvarado RN Nurse Procedure Data Cath Procedure Fluoroscopy Diagnostic fluoroscopy Total fluoroscopy Time: 3.8 time: 3.8 min min Diagnostic fluoroscopy Total fluoroscopy dose: 749 dose: 749 mGy mGy Contrast Material Contrast Material Type Amount (ml) Isovue 300 77 Entry Location Entry Primary Successful Side Size Upsize Upsize Entry Closure Sanz ccessful Closure Location (Fr) 1 (Fr) 2 (Fr) Remarks Device Remarks Femoral Right 7 Fr Manual vein Short Compression Femoral Right 5 Fr Exoseal artery Estimated blood loss: 5 ml Diagnostic catheters Device Type Used For End Catheter Placement SWAN 7Fr S Tip Procedure Thermodilution catheter (151F7) MULTIPACK JL 4.0 5Fr Procedure catheter DIAGNOSTIC JL 3.5 5Fr Procedure catheter ([id number]) MULTIPACK 3DRC 5Fr Procedure catheter MULTIPACK Pigtail 5 Fr Procedure catheter Procedure Complications No complications Procedure Medications Medication Administration Route Dosage 0.9% NaCl I.V. 100 ml/hr Lidocaine 2% added to field 20 Heparin Flush Bag added to field 2 bags (1000units/500ml NS) Oxygen etCO2 Nasal cannula 2 l/min Versed I.V. 2 mg Fentanyl I.V. 50 mcg Adenosine IV 3mg/ml I.V. 50 mcg/kg/min Adenosine IV 3mg/ml I.V. 100 mcg/kg/min Adenosine IV 3mg/ml I.V. 200 mcg/kg/min Adenosine IV 3mg/ml I.V. Hemodynamics Rest BSA: 1.83 (m2) HGB: 13.8 (g/dl) O2 Consumption: Estimated: 165.88 (ml/min) O2 Co nsumption indexed: Estimated:90.64 (ml/min/m) Heart Rate: 63 (bpm) Oxygen Saturations Time Location Saturations Hgb (g/dl) O2 Content Use (%) (ml/L) 9:06 PA 75.3 9:17 RV 82.5 9:19 RA 78.5 9:20 IVC 71.1 Pressure Samples Time Site Value (mmHg) Purpose Heart Use Rate(bpm) 9:05 PA 58/20(36) Snapshot 57 9:05 PCW 18/21(18) Snapshot 55 9:11 PA 50/18(30) Snapshot 57 9:13 PA 47/18(31) Snapshot 68 9:16 PA 50/20(32) Snapshot 71 9:16 RV 44/16,24 Snapshot 77 9:17 RV 43/11,12 Snapshot 114 9:18 RA 20/18(14) Snapshot 68 9:21 IVC 16/18(15) Snapshot 63 9:30 LV 148/4,24 EDP 53 9:31 AO 157/69(106) Pullback 68 9:31 LV 171/-2,33 Pullback 68 Gradients Valve Time Site 1 Site 2 Mean SEP/DFP Peak To Heart Use (mmHg) (sec/min) Peak Rate (mmHg) (bpm) Aortic 9:31 LV AO 20 21 14 68 171/-2,33 157/69(106) Calculations Vascular Value Indexed Resistance (dyne) values Content (ml/l) O2 Difference (ml/l) PVR/SVR 0.16 O2 MV 133.44 PV-PA(VA) TPVR/TSVR 0.32 O2 PA 141.32 PV-MV(VV) Source Qp or Qs Shunts (%) Right To 0.07 Left Valve P-P Mean Valve Index Valve Source Name Gradient Area Flow (cm2) Aortic 14 20 14 20 Snapshots Pre Cath Intra NCS Post Cath Vital Signs Time Heart Resp SPO2 etCO2 NIBP (mmHg) Rhythm Pain Sedation Rate (ipm) (%) (mmHg) Status Level (bpm) 8:44:10 65 13 100 37 170/78(134) NSR 0 (11) 10(A) , No pain 8:48:46 61 11 97 35.5 155/71(129) NSR 0 (11) 10(A) , No pain 8:52:58 59 22 90 39.2 126/65(101) SB 0 (11) 10(A) , No pain 8:58:12 59 17 98 38.4 149/74(132) SB 0 (11) 10(A) , No pain 9:02:38 61 24 99 36.2 152/74(132) NSR 0 (11) 9(A) , No pain 9:06:58 59 12 96 37.7 130/72(104) SB 0 (11) 9(A) , No pain 9:12:05 59 14 96 40.6 133/65(102) SB 0 (11) 9(A) , No pain 9:16:21 71 15 97 30.3 114/52(87) NSR 0 (11) 9(A) , No pain 9:20:35 62 16 96 33.2 121/58(94) NSR 0 (11) 9(A) , No pain 9:24:51 61 16 96 36.2 136/66(103) NSR 0 (11) 9(A) , No pain 9:29:11 65 17 97 39.9 142/62(110) NSR 0 (11) 9(A) , No pain 9:33:34 65 16 98 40.6 150/69(114) NSR 0 (11) 10(A) , No pain Medications Time Medication Route Dose Verified Delivered Reason Notes Effectiveness by by 8:42:55 0.9% NaCl I.V. 100 ml/hr Mateo Kaylen used for Juanito Alvarado store specialist 8:43:17 Lidocaine 2% added 20ml vial Mateo Mateo for local to Juanito Solomon MD anesthetic field 8:43:21 Heparin Flush added 2 bags Mateo Mateo used for Bag to Juanito Solomon MD procedure (1000units/500ml field NS) 8:43:32 Oxygen etCO2 2 l/min Mateo Mateo used for Nasal Juanito Solomon MD procedure cannula 9:01:41 Versed I.V. 2 mg Mateo Kaylen for Juanito Alvarado sedation RN 9:01:48 Fentanyl I.V. 50 mcg Mateo Kaylen for Juanito Alvarado sedation RN 9:09:35 Adenosine IV I.V. 50 Mateo Kaylen Per 3mg/ml mcg/kg/min Juanito Alvarado physician RN 9:11:50 Adenosine IV I.V. 100 Mateo Kaylen Per 3mg/ml mcg/kg/min Juanito Alvarado physician RN 9:14:20 Adenosine IV I.V. 200 Mateo Kaylen Per 3mg/ml mcg/kg/min Juanito Alvarado physician RN 9:16:47 Adenosine IV I.V. stopped Mateo Kaylen Per 3mg/ml Juanito Alvarado physician electric relay tester Log Time Note 8:25:31 Vikram Camarena RT(R) sent for patient. Start room use. 8:33:38 Signed procedure consent form obtained from patient. 8:33:39 Diagnostic Cath status Elective 8:33:40 Time tracking: Regular hours (M-F 7:00 - 5:00) 8:33:51 Plan of Care:Hemodynamics will remain stable., Cardiac rhythm will remain stable., Comfort level will be maintained., Respiratory function will remain adequate., Patient/ family verbilizes understanding of procedure., Procedure tolerated without complication., Recovers from procedure without complications.. 8:34:53 Patient received from Pre/Post Procedure Room to CCL 1 Alert and oriented. Tansferred to table in Supine position. 8:34:54 Warm blankets applied, and leandro hugger turned on for patient comfort. 8:34:54 Correct patient and procedure confirmed by team. 8:34:55 ECG and BP/O2 sat monitors applied to patient. 8:42:45 Vital chart was started 8:42:55 0.9% NaCl 100 ml/hr I.V. was administered by Kaylen Alvarado RN; used for procedure; 8:43:17 Lidocaine 2% 20ml vial added to field was administered by Mateo Solomon MD; for local anesthetic; 8:43:21 Heparin Flush Bag (1000units/500ml NS) 2 bags added to field was administered by Mateo Solomon MD; used for procedure; 8:43:32 Oxygen 2 l/min etCO2 Nasal cannula was administered by Mateo Solomon MD; used for procedure; 8:45:02 Rhythm: sinus rhythm 8:45:03 Full Disclosure recording started 8:45:12 H&P Date Dictated: 11/23/2018 Within 30 days and on chart., H&P Addendum completed by physician on day of procedure. (MUST COMPLETE FOR ALL OUTPATIENTS). 8:45:13 Pre-procedure instructions explained to patient. 8:45:13 Pre-op teaching completed and patient verbalized understanding. 8:45:14 Family in patients room. 8:45:16 Patient NPO since Midnight. 8:45:22 Patient allergic to No known allergies 8:45:25 Baseline sample Acquired. 8:45:29 Is patient on blood thinner?No 8:45:31 Patient diabetic? No. 8:45:34 Previous problem with sedation/anesthesia? No ? 8:45:35 Snore? Yes 8:45:36 Sleep apnea? Yes 8:45:37 Deviated septum? No 8:45:38 Opens mouth fully? Yes 8:45:38 Sticks out tongue? Yes 8:45:40 Airway obstruction? No ? 8:45:43 Dentures? No ? 8:45:46 Pre procedure: right dorsailis pedis pulse 1+ Palpable, but thready & weak; easily obliterated 8:45:50 Patient pain scale 0/10 ?. 8:45:55 IV patent on arrival in left hand with 0.9% NaCl at [facility]. 8:46:28 Lab Result : BUN 22 mg/dl 8:46:28 Lab Result : Creatinine 1.2 mg/dl 8:46:28 Lab Result : Hematocrit 40.8 % 8:46:28 Lab Result : Hemoglobin 13.8 g/dl 8:46:31 Lab results completed and on chart. 8:46:34 Right groin area was prepped with chlora-prep and draped in sterile fashion 8:46:35 Alarms reviewed by R. N. 8:46:35 Sharps counted by scrub and verified by R.N. 8:46:37 Use device set Femoral Dx 8:46:38 ACIST Syringe (38147) opened to sterile field. 8:46:39 Bag Decanter (2002S) opened to sterile field. 8:46:40 ACIST Hand Control (22688) opened to sterile field. 8:46:40 ACIST Manifold (72825) opened to sterile field. 8:46:41 Tegaderm 4 x 4 (1626W) opened to sterile field. 8:46:42 Medline Cath Pack ([id number]) opened to sterile field. 8:46:42 DIAGNOSTIC WIRE .035 260cm J wire (410333) opened to sterile field. 8:46:43 DIAGNOSTIC Multipack 5Fr catheter set ([id number]) opened to sterile field. 8:46:45 SHEATH 5FR [place] (SPS393) opened to sterile field. 8:46:57 SHEATH 7FR [place] (HDW704) opened to sterile field. 8:52:01 Patient Height : 63 inches 8:52:05 Patient Weight : 176 lbs 8:57:18 Zero performed for pressure channel P1 8:57:26 Zero performed for pressure channel P1 8:58:38 Zero performed for pressure channel P1 9:01:03 --------ALL STOP TIME OUT------ 9:01:03 Final Timeout: patient, procedure, and site verified with staff and physician. All members of the team are in agreement. 9:01:04 Right groin site verified by team. 9::08 Maximum allowable Isovue 300 dose 300ml. Physician notified. (300ml for normal creatinines. For patients with creatinine of 1.7 or higher multiply weight(kg) x 5 divided by creatinine.) 9:01:11 Fire Safety Assessment: A--An alcohol-based skin anteseptic being used preoperatively., C--Open oxygen or nitrous oxide is being used., D--An ESU, laser, or fiber-optic light is being used. 9:01:14 Physical assessment completed. ASA score P 2 - A patient with mild systemic disease as per Mateo Solomon MD. 9::16 Sedation plan: IV Moderate Sedation Medication:Versed, Fentanyl 9:01:21 Procedure started. 9::41 Versed 2 mg I.V. was administered by Kaylen Alvarado RN; for sedation; 9::48 Fentanyl 50 mcg I.V. was administered by Kaylen Alvarado RN; for sedation; 9:02:00 Local anesthetic to right femoral artery with Lidocaine 2% by Mateo Solomon MD.INITIAL ACCESS ONLY 9:02:46 A 7 Fr Short sheath was inserted into the Right Femoral vein 9::47 A 5 Fr sheath was inserted into the Right Femoral artery 9:04:25 A SWAN 7Fr S Tip Thermodilution catheter (151F7) was advanced over the wire and used for Procedure. 9:07:54 PA saturation: 75.3% 9:09:35 Adenosine IV 3mg/ml 50 mcg/kg/min I.V. was administered by Kaylen Alvarado RN; Per physician; 9:11:28 Timer 1 started at 9:09 AM, stopped at 9:11 AM, duration 00:02:07 sec. 9:11:50 Adenosine IV 3mg/ml 100 mcg/kg/min I.V. was administered by Kaylen Alvarado RN; Per physician; 9:13:59 Timer 1 started at 9:11 AM, stopped at 9:13 AM, duration 00:02:01 sec. 9:14:20 Adenosine IV 3mg/ml 200 mcg/kg/min I.V. was administered by Kaylen Alvarado RN; Per physician; 9:16:17 Timer 1 started at 9:14 AM, stopped at 9:16 AM, duration 00:02:04 sec. 9:16:47 Adenosine IV 3mg/ml stopped I.V. was administered by Kaylen Alvarado RN; Per physician; 9:17:45 RV saturation: 82.5% 9:19:23 RA saturation: 78.5% 9:20:29 IVC saturation: 71.1% 9:22:41 Catheter removed. 9:23:50 A MULTIPACK JL 4.0 5Fr catheter was advanced over the wire and used for Procedure. 9:24:49 UNABLE TO ENGAGE LCA 9:24:51 Catheter exchanged over wire. 9:25:02 A DIAGNOSTIC JL 3.5 5Fr catheter ([id number]) was advanced over the wire and used for Procedure. 9:26:44 LCA angiography performed. 9:26:46 Catheter exchanged over wire. 9:27:25 A MULTIPACK 3DRC 5Fr catheter was advanced over the wire and used for Procedure. 9:28:30 RCA angiography performed. 9:29:39 ELAM ANGIOGRAPHY TO LAD PREFORMED 9:29:41 Catheter exchanged over wire. 9:29:47 A MULTIPACK Pigtail 5 Fr catheter was advanced over the wire and used for Procedure. 9:30:02 LV gram done using JOSE 9:30:04 Injector settings: Ml/sec: 10, Volume: 20, 9:30:33 LV hemodynamics recorded. 9:30:43 EF : 55 % 9:31:00 Catheter removed. 9:31:24 EXOSEAL 5Fr (EX500) opened to sterile field. 9:32:41 Sheath removed intact; hemostasis achieved with Manual Compression to the Right Femoral vein. 9:32:45 Sheath removed intact; hemostasis achieved with Exoseal to the Right Femoral artery. 9:32:47 Procedure ended.(Physican Out) 9:33:19 Fluoroscopy time 03.80 minutes. 9:33: Flurop Dose total: 749 :33: Fluoroscopy dose: 749 mGy 9:33: Contrast amount:Isovue 300 77ml. 9:33:28 Sharps counted by scrub and verified by R.N. 9:33:31 Post-op/insertion site Right Femoral artery dressed using a 4 x 4 and Tegaderm. 9:33:33 Post-procedure physical assessment completed. ASA score P 2 - A patient with mild systemic disease as per Mateo Solomon MD. 9:33:36 Post procedure rhythm: sinus rhythm 9:33:38 Estimated blood loss: 5 ml 9:33:39 Post procedure instruction explained to patient.Patient verbalizes understanding. 9:33:40 Patient needs reinforcement of post procedure teaching. 9:34:03 Procedure type changed to Cath procedure, Diagnostic procedure, Right Heart, RHC and LHC w/Coronaries w/ Grafts, Sedation Charges, Moderate Sedation up to 30 minutes 9:35:52 Procedure and supply charges have been captured, reviewed, submitted and are correct. 9:35:55 Procedure Complication : No complications 9:36:04 Vital chart was stopped 9:36:04 See physician's report for complete and final results. 9:36:06 Report given to Pre/Post Procedure Room. 9:36:11 Patient transfered to Pre/Post Procedure Room with Stretcher. 9:36:13 Procedure ended. 9:36:13 Full Disclosure recording stopped 9:36:23 End room use (Document Last) Device Usage Item Name Manufacture Quantity Catalog Hospital Part Current Minima l Lot# / Number Charge Number Stock Stock Serial# Code ACIST Syringe Acist 1 29070 071048 270050 445333 20 (78103) Medical Systems Inc Bag Decanter Microtek 1 2001S 778279 05682 988747 5 (2001S) Medical Inc. ACIST Hand Acist 1 71766 642086 415813 256259 5 Control Medical (91597) Systems Inc ACIST Manifold Acist 1 48508 528922 483732 671617 5 (97405) Medical Systems Inc Tegaderm 4 x 4 3M 1 1626W 805539 082688 802503 5 (1626W) Medline Cath Medline 1 [id number] 820514 11264 335083 5 Pack ([id number]) DIAGNOSTIC [place] 1 727048 195682 105786 382239 30 WIRE .035 260cm J wire (977544) DIAGNOSTIC Cardinal 1 UK3009 082155 05530 759682 30 Multipack 5Fr Health catheter set (CQ7823) SHEATH 5FR Terum[place] 1 ERN165 069434 763939 683271 5 [place] (SYM851) SHEATH 7FR Terumo 1 RUH561 328249 935733 988187 5 [place] (BKG029) SWAN 7Fr S Tip Still 1 151F7 030465 158266 5 Thermodilution Lif[employer]iences catheter (151F7) MULTIPACK JL Cardinal 1 234150 5 4.0 5Fr Health catheter DIAGNOSTIC JL Cardinal 1 [id number] 150811 858571 011255 5 3.5 5Fr Health catheter ([id number]) MULTIPACK 3DRC Cardinal 1 535962 5 5Fr catheter Health MULTIPACK Cardinal 1 888445 5 Pigtail 5 Fr Health catheter EXOSEAL 5Fr Cardinal 1 EX500 185480 890979 107828 10 (EX500) Health Signature Audit [place] Stage Time Signature Unsigned Intra-Procedure 12/01/2018 Antonella Guan 9:39:34 AM RT(R) Signatures Monitor : Antonella Guan Signature : RT Date : Time : [id number] [place] [address]
[2018-12-01] MEDS ORDERED: FLUTICASONE PRO16 GM NASAL (06:41)
[2018-12-01] MEDS ORDERED: FUROSEMIDE20 MG PO (06:42)
[2018-12-01] MEDS ORDERED: LOPRESSOR25 MG PO (06:43)
[2018-12-01 06:54] VITALS: BP 150/54; Ht 160 cm; Wt 78.2 kg
[2018-12-01 07:15] LABS: BASOPHILS 0.5 % (0-2); EOSINOPHILS 1.6 % (0-7); HEMATOCRIT 40.8 % (36.0-48.0); HEMOGLOBIN 13.8 g/dL (12-16); LYMPHOCYTES 29.8 % (15-50); MCH 32.5 pg (26.0-34.0); MCHC 33.8 g/dL (31.0-37.0); MCV 96.2 fL (80.0-100.0); MEAN PLATELET VOLUME 10.8 fL (7.4-10.4); MONOCYTES 11.8 % (2-11); NEUTROPHILS 56.3 % (40-80); PLATELET COUNT 199 10x3/uL (130-400); RBC 4.24 10x6/uL (4.00-5.40); RDW 12.8 % (11.5-14.5); WBC 4.3 10x3/uL (4.8-10.8)
[2018-12-01 07:21] LABS: ANION GAP 12.1 mmol/L (8-16); CALCIUM 8.9 mg/dL (8.5-10.1); CARBON DIOXIDE 30.4 mmol/L (21.0-32.0); CREATININE - SERUM 1.2 mg/dL (0.6-1.3); POTASSIUM - SERUM 3.5 mmol/L (3.5-5.1)
--- NOTE | 2018-12-01 09:53 | NUR ---
RECIEVED TO ROOM VIA STRETCHER FROM PACU RN WITH 5 FR EXOSEAL R/GROIN CDI NO BLEEDING OR HEMATOMA NOTED. PATIENT CONNECTED TO MONITOR FOR OBSERVATION WITH HR 59 BP 142/63 CHEST PAIN IS DENIED
--- NOTE | 2018-12-01 10:07 | NUR ---
5 FR EXOSEAL R/GROIN REMAINS CDI WITH AREA SOFT TO PALPATE. HR 58 BP 136/58 CHEST PAIN IS DENIED. INSTRUCTED PATIENT TO KEEP HEAD FLAT ON PILLOW WITH RLE STRAIGHT
--- NOTE | 2018-12-01 10:36 | NUR ---
5 FR EXOSEAL R/GROIN CDI NO BLEEDING OR HEMATOMA NOTED. PATIENT DENIED PAIN
--- NOTE | 2018-12-01 11:00 | NUR ---
PATIENT RESPONDS TO VERBAL WITH CHEST PAIN DENIED VSS AND 5 FR EXOSEAL R/GROIN IS CDI
--- NOTE | 2018-12-01 11:28 | NUR ---
REPOSITIONED TO [facility] UP 20 FOR COMFORT. 5 FR EXOSEAL TO R/GROIN IS CDI NO BLEEDING NOTED. SANDWICH AND SODA TO BEDSIDE WITH NAUSEA DENIED
--- NOTE | 2018-12-01 11:47 | NUR ---
PATIENT TOLERATING SANDWICH WITH NAUSEA DENIED
--- NOTE | 2018-12-01 12:05 | NUR ---
VERBAL AND WRITTEN DISCHARGE GONE OVER WITH PATIENT. PIV REMOVED WITH DRESSING APPLIED. PATIENT UP TO GET DRESSED FOR DISCHARGE HOME NO DISTRESS AND 5 FR EXOSEAL R/GROIN IS CDI
--- NOTE | 2018-12-01 12:31 | NUR ---
TAKEN OUT VIA WHEELCHAIR BY CATH PHYSICS AND ASTRONOMY PROFESSOR. LEFT FACILITY WITH FAMILY AND ALL PERSONAL BELONGINGS.
== END 2018-12-01 12:31 | disposition home or self-care (01) ==
LOC: D.CATH 06:31
PROVIDERS: ATTEND Internal Medicine Cardiovascular Disease
DX: I07.1 Rheumatic tricuspid insufficiency (principal); I25.10 Atherosclerotic heart disease of native coronary artery without angina pectoris; Z95.5 Presence of coronary angioplasty implant and graft; Z01.812 Encounter for preprocedural laboratory examination

== ENCOUNTER → 2019-01-06 12:59 | Outpatient (CLI) | payer MEDICARE ==
[2018-12-01 06:54] VITALS: BMI 30.5
[~2019-01-06 12:59] MED LIST changes: +FLUTICASONE PRO16 GM NASAL; +FUROSEMIDE20 MG PO; +LOPRESSOR25 MG PO
== END | disposition home or self-care (01) ==
LOC: D.HCCARDIO 12:59
PROVIDERS: ATTEND Internal Medicine Cardiovascular Disease
DX: I07.1 Rheumatic tricuspid insufficiency (principal)

== ENCOUNTER 2019-04-10 08:00 | Outpatient (CLI) | payer MEDICARE ==
[2018-12-01 06:54] VITALS: BMI 30.5
== END 2019-04-10 23:59 | disposition home or self-care (01) ==
LOC: D.MAMMO 08:00
PROVIDERS: ATTEND Family Medicine
DX: Z12.31 Encounter for screening mammogram for malignant neoplasm of breast (principal)

== ENCOUNTER → 2020-02-27 10:28 | Outpatient (CLI) | payer MEDICARE ==
[2018-12-01 06:54] VITALS: BMI 30.5
--- NOTE | ~2020-02-27 | EC ---
PATIENT:JANIYA BERMAN DATE OF SERVICE: 02/27/20 SEX: F MEDICAL RECORD: [id number] DATE OF : [birth year] LOCATION:D[facility] AGE OF PATIENT: 65 ADMISSION DATE: 02/27/20 REFERRING PHYSICIAN: INTERPRETING PHYSICIAN: LEATHA TERESA MD ECHOCARDIOGRAM REPORT ECHO CHARGES 4 ECHO COMPLETE Date: 02/27/20 CLINICAL DIAGNOSIS: TR, MR, SOB ECHOCARDIOGRAPHIC MEASUREMENTS (adult normal given) AC root (d.<3.7cm) 2.6 cm LV Septum d (<1.2 cm> 0.7 cm Valve Excursion 1.7 cm LV Septum (systole) 0.8 cm Left Atria (s.<4.0cm> 4.0 cm LVPW d(<1.2cm) 0.8 cm RV (d.<2.3cm) 3.0 cm LVPW (sytole) 1.3 cm LV diastole(<5.6CM) 5.8 cm MV E-F(>70mm/sec) cm LV systole 5.1 cm LVOT Diameter 1.5 cm MV exc.(>10mm) cm Est.ejection fraction (50-75%) % DOPPLER: LVIT cm/sec A 58 cm/sec E 102 cm/sec LA cm/sec RVSP 41.8 mmHg LVOT 65 cm/sec AOP1/2T m/s Asc. Ao 115 cm/sec RVOT 46 cm/sec RA cm/sec PA 59 cm/sec AV Gradient Peak 5.3 mmHg AV Mean 2.8 mmHg AV Area 1.0 cm MV Gradient Peak 5.3 mmHg MV Mean 1.7 mmHg MV Area cm COMMENTS: Divorce Attorney: Kim AMAYA Door Slinger: 3 Dr. Hernandez TAPE# PACS Pericardial Effusion N DATE OF SERVICE: Adequate 2D, color flow imaging, spectral Doppler and M-mode. No LVH. LV internal dimension is normal. Wall motion is normal. EF is greater than or equal to 55%. Aortic valve is tricuspid. No evidence of stenosis by Doppler interrogation. Left atrium is normal at 4.8 cm. Mitral valve shows no prolapse. Trace MR. Right-sided chamber is grossly normal. Trace TR. TRANSINT:[id number] Voice Confirmation ID: [id number] DOCUMENT ID: [id number] ECHOCARDIOGRAM REPORT [id number] BERMAN,JANIYA DONATOLEATHA LOWE MD CC: [id number] DICTATION DATE: 02/28/20 1052 POURED WALL FOREMAN: 02/28/206 DEP CLI 02/27/20 [id number] [place] [address]
== END | disposition home or self-care (01) ==
LOC: D.ECHO 10:28
PROVIDERS: ATTEND Internal Medicine Cardiovascular Disease
DX: I36.1 Nonrheumatic tricuspid (valve) insufficiency (principal); I34.0 Nonrheumatic mitral (valve) insufficiency; R06.02 Shortness of breath